=== PATIENT | female | born 1960 | race Caucasian/White ===

== ENCOUNTER 2024-05-31 10:49 | Emergency (ER) | payer MEDICAID, OTHER ==
[~2024-05-31] VITALS: Ht 165.1 cm; Wt 77.1 kg
[2024-05-31 10:55] VITALS: BP 167/78; TEMP 98.1
[2024-05-31] MEDS ORDERED: IBUP-1957 PO (11:34)
[2024-05-31 11:40] VITALS: O2SAT 99
== END 2024-05-31 11:43 | disposition home or self-care (01) ==
LOC: ER 10:53
DX: M77.32 Calcaneal spur, left foot (principal); E11.9 Type 2 diabetes mellitus without complications; Z79.1 Long term (current) use of non-steroidal anti-inflammatories (NSAID)
CPT/HCPCS: 73630-TC